=== PATIENT | male | born 1960 | race Caucasian/White ===

== ENCOUNTER 2021-06-02 11:17 | Emergency (ER) | payer OTHER, SELFPAY ==
--- NOTE | ~2021-06-02 | XR_ITS ---
EXAMINATION: XR HAND, RIGHT CLINICAL INFORMATION: Dogbite right hand. COMPARISON: None TECHNIQUE: PA, lateral, and oblique views of the right hand. FINDINGS: There is no acute or healing fracture, dislocation, destructive process. Bony mineralization is normal. There is no destructive process or periostitis. No radiopaque soft tissue foreign body is demonstrated. There are benign appearing cystic changes noted in the carpal navicular and carpal lunate. No erosive change or chondrocalcinosis. XR/XR hand RT min 3V IMPRESSION: No fracture, destructive process, or radiopaque soft tissue foreign body.
[2021-06-02 11:49] VITALS: BP 147/87; PULSE 86; RESP 16; TEMP 36.9; O2SAT 97; BMI 28.2
--- NOTE | 2021-06-02 12:30 | ED.GENADULT ---
HPI - General Adult General Chief complaint: Animal Bite Stated complaint: dog bite Time Seen by Provider: 06/02/21 12:29 Source: patient Mode of arrival: ambulatory Limitations: no limitations History of Present Illness HPI narrative: This is a 60-year-old male no known medical history presents to the emergency department status post dog bite to his right hand was sustained right before his arrival while at work. Patient tells me that the dog bit through his work glove. He tells me there are a few puncture wounds on his right hand mainly on webspaces. He reports slight pain at the site. Bleeding is well controlled. Dog was vaccinated per section leader and machine setter. He is up to date on a tetanus shot last one in 2018. Onset (ago): hour(s) (1) Location: right and upper extremity (hand) Radiation: non-radiation Severity: mild Quality: burning Pain Consistency: constant Relieving factors: none Exacerbating factors: none Associated symptoms: denies other symptoms Treatments prior to arrival: none Related Data Previous Rx's Medication Instructions Recorded amoxicillin 875 mg-potassium 1 tab PO BID 7 Days #14 tab 06/02/21 clavulanate 125 mg tablet (Augmentin) Allergies Allergy/AdvReac Type Severity Reaction Status Date / Time Unable to Assess Allergy Unverified 06/02/21 12:29 Review of Systems Review of Systems: Constitutional : No Fever, No Chills, Cardiovascular : No Chest Pain, No SOB Respiratory : No Dyspnea Gastrointestinal : No abdominal pain Musculoskeletal : No Joint Swelling Skin : No rash, positive puncture wound to right hand Neuro : No Weakness, No Numbness Psych : No SI/HI Yes all other systems are reviewed and are negative PMFSH Past Medical History Attestation statement: The following information was validated with the patient. Source: old records reviewed and nursing notes reviewed Medical History No known health problems Social History Social History Advance Directives: No Advance Directives Information Provided: No Physical Exam Vital Signs: Vital Signs: Last Vital Signs Temp 98.5 F 06/02/21 11:49 Pulse 86 06/02/21 11:49 Resp 16 06/02/21 11:49 BP 147/87 H 06/02/21 11:49 Pulse Ox 97 06/02/21 11:49 BMI result Body Mass Index 28.2 Vital signs stable Appearance: Alert.? Oriented X3.? No acute distress.? Head: Normocephalic, atraumatic, no step-offs or deformities Neck: Normal inspection.? Neck supple.? CVS: Normal heart rate and rhythm.? Pulses normal.? Respiratory: No respiratory distress.? Breath sounds normal.? Abdomen: Soft and nontender.? Skin: Skin warm and dry.? Normal skin color.? Normal skin turgor.? Extremities: No lower extremity edema.? No calf ttp. 5/5 strength to bilateral upper and lower extremities Neuro: Oriented X 3.? No motor deficit.? No sensory deficit. Course Reevaluation(s) Reevaluation #1: Patient confirmed with animal control that the dog was vaccinated. No need for rabies series at this time. Patient is up-to-date a tetanus shot. The area was irrigated well using saline, and will be left open for drainage, no need for sutures or Steri-Strips at this time. I feel safe and comfortable with discharge home, he will be given Augmentin for prophylaxis. Comfortable with discharge with PCP and were connection follow-up. Time: 13:33 Medical Decision Making [facility] Narrative Medical decision making narrative: 1231 60 yo M no pmhx presents to ED with a dog bite to right hand that occured right before his arrival to ED. He was at work. Dog was vaccinated. He is uptodate on his tetanus Physical examination significant puncture wound noted to the right hand, secondary to dog bite. No evident ligament tear tendon involvement. Moving all digits, and bilateral hands. Plan at this time is to irrigate the area, and apply dry sterile dressing to the area. Medical Records Medical records reviewed: Yes I reviewed the patient's medical records. Lab Data Lab results reviewed: Yes I reviewed the patient's lab results. Critical Care Time Critical Care Time Critical Care Time: No Discharge Plan Discharge Clinical Impression: Bite by animal, Dog bite, Work related injury Patient Disposition: Home, Self-Care Instructions: Animal Bite (ED) Additional Instructions: Take your medications as prescribed. If you were prescribed antibiotics today, it is important that you take your medication to their entirety, do not skip any doses, do not finish them early. Follow-up with your primary care provider this week. Follow-up with the were connection as this was a work related injury Return to the emergency department with new or worsening symptoms. In case of emergency call 911 Prescriptions: New amoxicillin-pot clavulanate [Augmentin] 875-125 mg tablet 1 tab PO BID 7 Days Qty: 14 RF: 0 Referrals: Shai Palacios MD [Primary Care Provider] - 2 days Stand Alone Forms: Work/School Release
== END 2021-06-02 13:53 | disposition home or self-care (01) ==
PROVIDERS: Emergency Provider Emergency Medicine; PCP Internal Medicine
DX: S61.451A Open bite of right hand, initial encounter (principal); W54.0XXA Bitten by dog, initial encounter; Y93.01 Activity, walking, marching and hiking; Y92.480 Sidewalk as the place of occurrence of the external cause; Y99.0 Civilian activity done for income or pay
CPT/HCPCS: 73130; 99283